=== PATIENT | male | born 1980 | race Caucasian/White ===

== ENCOUNTER 2020-08-02 17:22 | Emergency (ER) | payer OTHER ==
[~2020-08-02] VITALS: Ht 182.9 cm; Wt 94.8 kg
[2020-08-02 17:43] LABS: URINE BILIRUBIN NEGATIVE (Negative); URINE BLOOD TRACE (Negative); URINE CLARITY CLEAR; URINE COLOR YELLOW; URINE GLUCOSE-RANDOM NEGATIVE (Negative); URINE KETONES NEGATIVE (Negative); URINE LEUKOCYTES-REFLEX NEGATIVE (Negative); URINE NITRITE-REFLEX NEGATIVE (Negative); URINE PROTEIN NEGATIVE (Negative); URINE SPECIFIC GRAVITY 1.015 (1.005-1.030); URINE UROBILINOGEN 0.2 E.U./dl (0.2-1.0)
[2020-08-02] MEDS ORDERED: KAPSPARGO SPRIN25 MG PO (18:16)
[2020-08-02] MEDS ORDERED: CIPRO500 M1 PO (18:16)
[2020-08-02 19:31] VITALS: BP 165/95
== END 2020-08-02 19:32 | disposition home or self-care (01) ==
LOC: M.ERS 17:22
PROVIDERS: Physician Assistant
DX: N30.90 Cystitis, unspecified without hematuria (principal); R30.0 Dysuria; I10 Essential (primary) hypertension; F17.210 Nicotine dependence, cigarettes, uncomplicated

== ENCOUNTER 2020-09-14 09:39 | Emergency (ER) | payer OTHER ==
[~2020-09-14] VITALS: Ht 180.3 cm; Wt 99.8 kg
[~2020-09-14 09:39] MED LIST: CIPRO500 M1 PO; KAPSPARGO SPRIN25 MG PO
[2020-09-14] MEDS ORDERED: TOPROL XL50 MG PO (10:42)
[2020-09-14] MEDS ORDERED: AMOXICILLIN 50500 MG PO (10:42)
[2020-09-14 10:49] VITALS: BP 225/158
== END 2020-09-14 10:52 | disposition home or self-care (01) ==
LOC: M.ERS 09:39
DX: J02.0 Streptococcal pharyngitis (principal); Z20.822 Contact with and (suspected) exposure to COVID-19; I10 Essential (primary) hypertension; F17.210 Nicotine dependence, cigarettes, uncomplicated